=== PATIENT | male | born 1960 | race American Indian/Alaskan Native ===

== ENCOUNTER 2017-05-23 09:04 | Observation (INO) | payer OTHER ==
[2017-05-23 09:10] VITALS: BMI 27.1
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
[2017-05-23 10:17] LABS: BASOPHIL 0.3 % (0-2.0); MCH 29.2 pg (25.7-33.7); MEAN CELL VOLUME 88.4 fl (80-96); MEAN PLT VOLUME 8.7 fl (7.5-11.1); NEUTROPHILS 81.1 % (42.8-82.8); PLATELET COUNT 169 K/MM3 (134-434); WHITE BLOOD COUNT 7.4 K/mm3 (4.0-10.0)
[2017-05-23 10:27] LABS: INR 1.05 (0.82-1.09); PROTHROMBIN TIME (PATIENT) 11.9 SEC (9.98-11.88)
[2017-05-23] MEDS ORDERED: LABETALOL HCL 200 MG TABLET (FP) PO ONE (10:31)
--- NOTE | 2017-05-23 10:36 | EKG ---
Test Reason : Blood Pressure : / mmHG Vent. Rate : 078 BPM Atrial Rate : 078 BPM P-R Int : 212 ms QRS Dur : 098 ms QT Int : 358 ms P-R-T Axes : 056 -05 068 degrees QTc Int : 408 ms SINUS RHYTHM WITH 1ST DEGREE A-V BLOCK OTHERWISE NORMAL ECG NO PREVIOUS ECGS AVAILABLE REPEAT EKG IF CLINICALLY INDICATED Confirmed by ROSIBEL KOVACS MD ([id number]) on 05/23/2017 10:36:20 AM Referred By: Confirmed By:ROSIBEL KOVACS MD
[2017-05-23 10:38] LABS: ALBUMIN 3.9 g/dl (3.4-5.0); ANION GAP 10 (8-16); CALCIUM 8.2 mg/dL (8.5-10.1); CO2 28 mmol/L (21-32); GLUCOSE,RANDOM 193 mg/dL (74-106)
[2017-05-23 10:44] LABS: ALK PHOS 58 U/L (45-117); BILIRUBIN,TOTAL 0.7 mg/dL (0.2-1.0); CPK 197 IU/L (39-308); CREATININE 1.2 mg/dL (0.7-1.3); SGOT/AST 17 U/L (15-37); SGPT/ALT 30 U/L (12-78); TOT PROT 7.2 g/dl (6.4-8.2); TROPONIN I < 0.02 ng/ml (0.00-0.05)
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
[2017-05-23] MEDS ORDERED: morphine SULFATE 4 MG/ML VIAL IVPUSH PRN (11:01)
[2017-05-23] MEDS ORDERED: LABETALOL HCL 100 MG TABLET (FP) ONE (11:01)
[2017-05-23 11:18] LABS: URINE APPEARANCE CLEAR; URINE BILIRUBIN NEGATIVE (NEGATIVE); URINE BLOOD 1+ (NEGATIVE); URINE COLOR YELLOW; URINE GLUCOSE (UA) 2+ (NEGATIVE); URINE KETONE NEGATIVE (NEGATIVE); URINE NITRITE NEGATIVE (NEGATIVE); URINE PROTEIN NEGATIVE (NEGATIVE); URINE UROBILINOGEN NEGATIVE mg/dL (0.2-1.0)
--- NOTE | 2017-05-23 11:20 | HP ---
CHIEF COMPLAINT: weakness. PCP:Dr. Saab HISTORY OF PRESENT ILLNESS: 56 yo M with significant PMHx of HTN, HLD, DM presents to ED after brief episode of right sided weakness. This morning when he woke up he had a problems getting out our bed secondary to right sided leg weakness. This was the only deficit and resolved on it own in 2 min. He then had breakfast and went down to his basement and was brushing his teeth when he had yet another episode of right sided weakness that caused him to lay on floor for 15 min. Then he got up and took his daughter to school and while driving home ER course was notable for: (1)CT head (-) for acute IC bleed (2)EKG show NSR with 1st degree AV block. (3)ASA 325 given Recent Travel: PAST MEDICAL HISTORY: HTN, HLD, DM PAST SURGICAL HISTORY: Herniated disc repair >15yrs ago Social History: Smoking:never smoked Alcohol:denies Drugs: denies Family History: mother (DM) Allergies No Known Allergies Allergy (Verified 05/23/17 09:06) HOME MEDICATIONS: Home Medications Medication Instructions Recorded Losartan Potassium [Cozaar] 25 mg PO DAILY 06/18/16 REVIEW OF SYSTEMS CONSTITUTIONAL: Absent: fever, chills, diaphoresis, generalized weakness, malaise, loss of appetite, weight change HEENT: Absent: rhinorrhea, nasal congestion, throat pain, throat swelling, difficulty swallowing, mouth swelling, ear pain, eye pain, visual changes CARDIOVASCULAR: Absent: chest pain, syncope, palpitations, irregular heart rate, lightheadedness , peripheral edema RESPIRATORY: Absent: cough, shortness of breath, dyspnea with exertion, orthopnea, wheezing, stridor, hemoptysis GASTROINTESTINAL: Absent: abdominal pain, abdominal distension, nausea, vomiting, diarrhea, constipation, melena, hematochezia GENITOURINARY: Absent: dysuria, frequency, urgency, hesitancy, hematuria, flank pain, genital pain MUSCULOSKELETAL: Absent: myalgia, arthralgia, joint swelling, back pain, neck pain SKIN: Absent: rash, itching, pallor HEMATOLOGIC/IMMUNOLOGIC: Absent: easy bleeding, easy bruising, lymphadenopathy, frequent infections ENDOCRINE: Absent: unexplained weight gain, unexplained weight loss, heat intolerance, cold intolerance NEUROLOGIC: Absent: headache, focal weakness or paresthesias, dizziness, unsteady gait, seizure, mental status changes, bladder or bowel incontinence PSYCHIATRIC: Absent: anxiety, depression, suicidal or homicidal ideation, hallucinations. PHYSICAL EXAMINATION Vital Signs - 24 hr 05/23/17 05/23/17 09:06 11:07 Temperature 97.9 F Pulse Rate 86 Pulse Rate [ 88 Apical] Respiratory 16 18 Rate Blood Pressure 172/122 Blood Pressure 179/120 [Right Arm] O2 Sat by Pulse 99 100 Oximetry (%) GENERAL: AAOx3, NAD HEAD: AT/NC, no signs of facial droop EYES: PERRLA,EOMI, sclera anicteric, conjunctiva clear. No lid lag. EARS, NOSE, THROAT: Moist mucous membranes, uvula midline NECK: Supple, NO JVD or bruits. LUNGS: CTAB. No wheezes, and no crackles. No accessory muscle use. HEART: RRR, normal S1 and S2 NO M/G/R ABDOMEN: Soft, NT/ND, normoactive bowel sounds, no guarding, no rebound, no masses. No hepatomegaly or splenomegaly. MUSCULOSKELETAL: Normal range of motion at all joints. No bony deformities or tenderness. No CVA tenderness. UPPER EXTREMITIES: 2+ pulses, warm, well-perfused. No cyanosis. No clubbing. No peripheral edema. LOWER EXTREMITIES: 2+ pulses, warm, well-perfused. No calf tenderness. No peripheral edema. NEUROLOGICAL: Cranial nerves II-XII intact. Normal speech. Normal gait. 5/5 strength upper and lower ext. no sensory deficit. 2+ reflexes Patellar, and bicep. PSYCHIATRIC: Cooperative. Good eye contact. Appropriate mood and affect. SKIN: Warm, dry, normal turgor, no rashes or lesions noted, normal capillary refill. Laboratory Results - last 24 hr 05/23/17 05/23/17 05/23/17 09:40 09:42 10:03 WBC 7.4 RBC 5.18 Hgb 15.1 Hct 45.8 MCV 88.4 MCH 29.2 MCHC 33.0 RDW 13.0 Plt Count 169 MPV 8.7 Neutrophils % 81.1 Lymphocytes % 11.4 Monocytes % 6.2 Eosinophils % 1.0 Basophils % 0.3 PT with INR 11.90 H INR 1.05 Blood Type O POSITIVE Antibody Screen Negative IMAGING: * [id number] CT/HEAD CT (STROKE) Cranial CT without contrast Clinical information - evaluate for stroke No intracranial hemorrhage is seen. There is no discrete infarct within the limitations of CT. No extra-axial fluid collection is noted. There is no abnormal attenuation. No gross mass lesion is seen. The ventricles and cisterns appear unremarkable. No calvarial defect is noted. IMPRESSION: No CT evidence of acute pathology. Reported By: Kartik Valles MD 05/23/17 1010 ASSESSMENT/PLAN: 56 yo M with PMhx of HTN admitted to telemetry for further workup of possible TIA. Problem List - Problem (1) TIA (transient ischemic attack) Assessment/Plan: NIH stroke scale - 0, ABCD2 score- 4 * Will admit to telemetry * CT w/o contrast (-) for acute bleed. * EKG shows NSR with 1st degree AV block - no previous to compare. * Neurology consulted. * MRI w/o contrast pending. * Echo pending. * Neuro checks with NIH stroke scale Q6H * Speech and swallow eval as well as physical therapy. * Lipid profile - will assess need for statins.( if need will initiate with Lipitor 80mg HS) * Carotid doppler pending. * ASA 325 given in ED. * Permissive HTN for now maintain SBP<180 * TSH and B12 ordered. (2) HTN (hypertension) Assessment/Plan: Permissive HTN for now * Will restart Losartan tomorrow as per Neurology recs. (3) DVT prophylaxis Assessment/Plan: Heparin SQ 5000U Q8H Visit type - Emergency Visit Emergency Visit: Yes ED Registration Date: 05/23/17 Care time: The patient presented to the Emergency Department on the above date and was hospitalized for further evaluation of their emergent condition. - New Patient This patient is new to me today: Yes Date on this admission: 05/23/17 - Critical Care Critical Care patient: No
[2017-05-23 12:50] LABS: URINE RBC 1
--- NOTE | 2017-05-23 13:02 | PN ---
Teaching Attending Note Name of Resident: Tony Plata ATTENDING PHYSICIAN STATEMENT I saw and evaluated the patient. I reviewed the resident's note and discussed the case with the resident. I agree with the resident's findings and plan as documented. SUBJECTIVE: OBJECTIVE: Vital Signs Period Temp Pulse Resp BP Sys/Hill Pulse Ox Last 24 Hr 97.9 F-98.3 F 74-88 16-18 138-179/93-122 96-100 Home Medications Medication Instructions Recorded Losartan Potassium [Cozaar] 25 mg PO DAILY 06/18/16 Laboratory Tests 05/23/17 05/23/17 05/23/17 09:40 09:42 09:42 WBC 7.4 RBC 5.18 Hgb 15.1 Hct 45.8 MCV 88.4 MCH 29.2 MCHC 33.0 RDW 13.0 Plt Count 169 MPV 8.7 Neutrophils % 81.1 Lymphocytes % 11.4 Monocytes % 6.2 Eosinophils % 1.0 Basophils % 0.3 PT with INR 11.90 H INR 1.05 Sodium 136 Potassium 3.6 Chloride 98 Carbon Dioxide 28 Anion Gap 10 BUN 15 Creatinine 1.2 Creat Clearance w eGFR > 60 Random Glucose 193 H Calcium 8.2 L Total Bilirubin 0.7 AST 17 ALT 30 Alkaline Phosphatase 58 Creatine Kinase 197 Creatine Kinase Index 1.0 CK-MB (CK-2) 2.163 Troponin I < 0.02 Total Protein 7.2 Albumin 3.9 Urine Color Urine Appearance Urine pH Ur Specific Donna Urine Protein Urine Glucose (UA) Urine Ketones Urine Blood Urine Nitrite Urine Bilirubin Urine Urobilinogen Urine WBC (Auto) Urine RBC (Auto) Blood Type Antibody Screen 05/23/17 05/23/17 10:03 10:56 WBC RBC Hgb Hct MCV MCH MCHC RDW Plt Count MPV Neutrophils % Lymphocytes % Monocytes % Eosinophils % Basophils % PT with INR INR Sodium Potassium Chloride Carbon Dioxide Anion Gap BUN Creatinine Creat Clearance w eGFR Random Glucose Calcium Total Bilirubin AST ALT Alkaline Phosphatase Creatine Kinase Creatine Kinase Index CK-MB (CK-2) Troponin I Total Protein Albumin Urine Color Yellow Urine Appearance Clear Urine pH 7.0 Ur Specific Donna 1.006 Urine Protein Negative Urine Glucose (UA) 2+ H Urine Ketones Negative Urine Blood 1+ H Urine Nitrite Negative Urine Bilirubin Negative Urine Urobilinogen Negative Urine WBC (Auto) No Result Required. Urine RBC (Auto) 1 Blood Type O POSITIVE Antibody Screen Negative ASSESSMENT AND PLAN:
[2017-05-23 13:05] LABS: THYROID STIMULATING HORMONE 1.3 uIU/ml (0.358-3.74)
--- NOTE | 2017-05-23 13:33 | CONSULT ---
Admitting History and Physical - Primary Care Physician PCP: Patrick Beatty - Admission History Source: Patient, Family Member, Medical Record Limitations to Obtaining History: No Limitations - Smoking History Smoking history: Never smoked Have you smoked in the past 12 months: No - Alcohol/Substance Use Hx Alcohol Use: No History - Admission Reason For Visit: TRANSIENT CEREBRAL ISCHEMIA - Diagnostics CT Scan: Report Reviewed - General Mental Status: Alert and Oriented, Awake and Alert, Able to Follow Commands Attention: Intact Ability to Follow Directions: Excellent Head/Neck Control: WFL - Hearing Hearing: Functional Speech Evaluation - Communication Primary Language: SETS[place] Communication: Yes: Within Normal Limits Oral Expression Ability: Yes: No Impairment - Speech Production Able to Make Needs Known: Yes: WNL Intelligibility: Yes: WNL - Speech Characteristics Voice Loudness: Normal Voice Pitch: Yes: Normal Voice Phonatory-based Quality: Yes: Normal Speech Pattern: Normal Speech Clarity: < 100% Nasal Resonance: Normal Articulation: Yes: Precise - Language/Auditory Comprehension Follows: Yes: 2 Stage Simple Commands - Language/Verbal Expression Able to Respond to Simple Queries: Yes: WNL Able to Communicate Wants and Needs: Yes: WNL Functional Communication Status: Yes: WNL - Memory/Perception FDC Memory: Yes: WNL Short Term Memory: Yes: WNL - Swallow Evaluation/Bedside Assessment Current Nutritional Intake: Regular, Thin Liquids Oral Secretions: Yes: WFL Dentition: Yes: Adequate Facial Symmetry at Rest: Symmetrical Facial Symmetry on Retraction: Symmetrical Facial Movement: Controlled Against Resistance Opening: Normal Against Resistance Closing: Normal Pucker Lips: Normal Smile: Normal Lingual Movement: Normal, Symmetric Lingual Speed of Movement: Normal Lingual Movement Strgth Against Opposition: Normal Lingual Movement Characteristics: Normal Velopharyngeal Movement: Normal Laryngeal Elevation: WFL Laryngeal Movement: Able to Palpate Rate of Intake: WFL Bolus Size: WFL Labial Seal: WFL Chewing: WFL Oral Prep Time: WFL A-P Transit: WFL Pocketing: None Timing of Swallow: WFL Coughing/Throat Clear: No Change in Voice: No Recommendations - Speech Evaluation, Impression/Plan Impression: Speech/language/Swallowing/cognition intact. Tolerated lunch in ER. - Dysphagia Impressions/Plan Swallowing Skills: WFL Dysphagia Impressions: No Impairment *Silent aspiration: cannot be R/O at bedside - Recommendations Diet Consistency: Regular Medication Administration: Whole with water Liquids: Thin Liquids
[2017-05-23] MEDS ORDERED: ASPIRIN 325 MG TABLET PO ONE (14:03)
[2017-05-23 14:45] VITALS: TEMP 98.4
[2017-05-23] MEDS ORDERED: ASPIRIN 325 MG TABLET ONE (15:45)
[2017-05-23 16:07] VITALS: PULSE 84
[2017-05-23 16:10] VITALS: BP 153/91
[2017-05-23 16:41] LABS: URINE LEUK ESTERASE Negative (NEGATIVE)
[2017-05-23] MEDS ORDERED: HEPARIN NA (PORCINE) 5,000 UNITS/ML 1ML VIAL SQ SCH (18:00)
[2017-05-23] MEDS ORDERED: ATORVASTATIN CA 80 MG TABLET (FP) PO SCH (22:00)
[2017-05-24] MEDS ORDERED: ASPIRIN COATED 81 MG TABLET.EC PO SCH (10:00)
[2017-05-24] MEDS ORDERED: LOSARTAN POTASSIUM 25 MG TABLET PO SCH (10:00)
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
== END 2017-05-23 16:27 | disposition short-term general hospital (02) ==
LOC: JER 09:04 → JERBED 10:59 → UNDOADMOB 10:59 → INTOOBSV 10:59 → JERBED 11:01
PROVIDERS: ADMIT Internal Medicine; ATTEND Internal Medicine
DX: G45.8 Other transient cerebral ischemic attacks and related syndromes (principal); I10 Essential (primary) hypertension; E78.5 Hyperlipidemia, unspecified; E11.9 Type 2 diabetes mellitus without complications
CPT/HCPCS: 36415; 70450-TC; 71010-TC; 80053; 80061; 81003; 81015; 82550; 82553; 83036; 83721; 84443; 84484; 85025; 85610; 86850; 86900; 86901; 93005; 93010; 93306-TC; 93880-TC; 99285-25; G0378

== ENCOUNTER 2024-10-03 06:30 | Day surgery (SDC) | payer OTHER ==
[2024-10-02 10:35] VITALS: BMI 26.7
[2024-10-03 10:26] VITALS: PULSE 59; RESP 18
[2024-10-03 10:30] VITALS: BP 109/75; TEMP 97.9
== END 2024-10-03 10:37 | disposition home or self-care (01) ==
LOC: JASU-ENDO 06:30
PROVIDERS: ATTEND Internal Medicine Gastroenterology
PROC: 0DJD8ZZ Inspection of Lower Intestinal Tract, Via Natural or Artificial Opening Endoscopic (ICD-10-PCS; principal; 2024-10-03 09:00)
DX: Z12.11 Encounter for screening for malignant neoplasm of colon (principal); I10 Essential (primary) hypertension; E11.9 Type 2 diabetes mellitus without complications